=== PATIENT | male | born 1930 | race Caucasian/White ===

== ENCOUNTER 2016-10-12 22:30 | Inpatient (IN) | payer MEDICARE, OTHER ==
[~2016-10-12] VITALS: Ht 167.6 cm; Wt 73.4 kg
--- NOTE | ~2016-10-12 | CON ---
PATIENT'S NAME: CHING WILLIS [facility] AGE: 85 Y [address] ROOM: G6312 [place], [place] [address] LOCATION: GPCU ADMIT DATE: 10/12/2016 Consultation DISCHARGE DATE: FAMILY PHYSICIAN: PHYSICIAN, UNKNOWN ATTENDING PHYSICIAN: DEISY SEN V DATE OF CONSULTATION: 10/14/2016 REFERRING PHYSICIAN: LUCIA FONSECA MD The patient was seen in neurologic consultation on 10/14/2016 at the request of Dr. Niya Mortensen, the hospitalist. HISTORY OF PRESENT ILLNESS: Mr. 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 He initially had two events that were suggestive of a seizure, but probably more of a behavioral event that happened around nine months ago where he was experiencing some shaking and alteration in his sensorium very briefly not followed by any postictal period of confusion. In fact, his said that he had his eyes closed and did not lose posture with this and did not injure himself with both events. He was sent by his primary care doctor to a neurologist in [place], [place] where he was placed on Dilantin. The patient continued to have events that was suggestive of behavioral changes mostly unrelated to any tonic-clonic seizure activity and certainly no postictal periods of lethargy. We are not sure of a prior EEG if it was performed in the past, but an EEG was done today. The has been describing that over the past one and a half years, he has been having events of hallucinations where he would be seeing persons in the room and even describing him seeing his son in the room. Furthermore, he has unexplained periods during the day where he could certainly have a delirium and then improve, one day may be good followed by the next day, which is terrible with extreme amounts of agitation and delirium. He is not on any dementia medication at all. Further indications that this may be Lewy body dementia is the more rapid onset of this presentation the hallucinations and delirium as well as some parkinsonian features of the patient having increased slowing, having increased limb tone and falling and periods of a shuffling gait and falling. Neurology was asked to see if the patient was safe to go in for a permanent pacemaker for third-degree heart block which is indicated on an EKG. Furthermore, Neurology was questioned on the aspect of the questionable seizures and what medication should be recommended at this point in time. PRIOR MEDICAL HISTORY: Dementia for about one and half years not on any dementia medication, likely Lewy body dementia consistent with hallucinations, periods of unexplained confusion with delirium, and parkinsonian features with unexplained falls. He PATIENT'S NAME: CHING WILLIS [facility] AGE: 85 Y [address] ROOM: [facility] [place], [place] [address] [facility] AD[facility] DATE: 10/12/2016 Consultation DISCHARGE DATE: FAMILY PHYSICIAN: PHYSICIAN, UNKNOWN ATTENDING PHYSICIAN: DEISY SEN V also has a history of coronary artery disease status post CABG. History of aortic pig prosthetic valve replacement. CURRENT MEDICATIONS: Started today include: 1. Keppra 500 mg p.o. b.i.d. 2. Aspirin 81 mg p.o. daily. 3. Cozaar 25 mg p.o. daily. 4. Zocor 20 mg p.o. daily. FAMILY HISTORY: Not consistent here and there is no known history of dementia in the parents. 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 He has been to his 2nd presently for 47 years. He has a total of five children. He does not smoke. He does not drink alcohol. REVIEW OF SYSTEMS: NEUROLOGIC: The patient has dementia likely Lewy body type dementia with unexplained falling, delirium, hallucinations and more rapid onset of symptoms over the course of time, most recently worsening of periods of unexplained alteration in sensorium not consistent with the seizures. CARDIAC: The patient has a third degree heart block. He is scheduled for a permanent pacemaker today. He has an aortic valve replacement that does not require oral anticoagulation as it is a prosthetic pig valve. He denies any current chest pain. The cardiac history also includes hypertension, coronary artery disease. The rest of a 10-point review of systems currently was within normal limits. PHYSICAL EXAMINATION: GENERAL: The patient is sitting upright in the bed. He greets me, and he is alert and oriented to the day, time, but not the date. He answers questions appropriately, but he is not very spontaneous in his speech. His speech is not slurred. There were no problems with word finding. He follows all commands in the testing. There is slight mass facial expression on the cranial nerve exam, otherwise cranial nerves 2 through 12 was intact. Neck is supple on flexion and extension. Motor power is symmetric at 5/5 graded in the upper and lower extremities. There was slight tone increase in the right upper extremity with no evidence of any background cogwheeling. Sensory exam is completely intact. Reflexes are normal +1 at the biceps, triceps, brachioradialis, patellar, and ankle jerk reflexes. Plantar reflex is downgoing. Ambulation is not tested. Subjective recall from the , he has diminished arm swing and stooped posture. PATIENT'S NAME: CHING WILLIS [facility] AGE: 85 Y [address] ROOM: [address] [address] [facility] ADMIT DATE: 10/12/2016 Consultation DISCHARGE DATE: FAMILY PHYSICIAN: PHYSICIAN, UNKNOWN ATTENDING PHYSICIAN: DEISY SEN V IMPRESSION: Let us continue the patient on antiseizure medications at this point in time, Keppra will be started at 500 mg twice a day. I am very skeptical that he actually has a seizure diagnosis. I think this was something of an exclusion, especially considering the patient did have prominent dementia symptoms that started nearly one year ago. The nature of alteration in sensorium without being some type of a partial-complex seizure is much more likely to be an associated behavioral changes then it is seizures. It would be very strange for a person his age to suddenly develop seizure activity with normal brain imaging and certainly I would not support partial-complex seizures here. Because he has a procedure upcoming let us keep him on the antiseizure medication. I want to see him in the outpatient setting. We may lower the Keppra with time to see how he does, but certainly he needs to be placed on Aricept as an outpatient which would be better handled and to follow him then. Discussed the nature of Lewy body dementia with the and the family members and they described very salient points concerning these more rapid onset of dementia with hallucinations, parkinsonian features, falling, explained delirium events, staring into space very much consistent with Lewy body dementia. Neurologic perspective, he certainly is okay to go in for a permanent pacemaker procedure today. I will follow up with the patient in clinic. MD GARY CHOWDHURY/carlos a /[id number] d: 10/14/16 1840 t: 10/27/16 1352, CONSULTATION REPORT
--- NOTE | ~2016-10-12 | NDGEN ---
PATIENT'S NAME: CHING OSUNA [facility] AGE: 85 Y [address] ROOM: [address] [address] [facility] ADMIT DATE: 10/12/2016 Neurodiagnostics DISCHARGE DATE: FAMILY PHYSICIAN: PHYSICIAN, UNKNOWN ATTENDING PHYSICIAN: DEISY SEN V PROCEDURE: ELECTROENCEPHALOGRAM DATE OF PROCEDURE: 10/14/2016 CLINICAL DIAGNOSIS: The patient had the study done on 10/14/2016 at the request of Dr. Mortensen. TIME: 8:50 a.m. INDICATIONS: This is an 85-year-old male patient who has dementia. He has possibly a history of seizures though the differential would be occasional behavioral events suggestive of alteration in sensorium. He is scheduled to have a pacemaker placed today for a third-degree heart block. FINDINGS: This is a 20-lead EEG, which was done with the patient initially alert and who later becomes drowsy. Photic stimulation was performed late in the course of the study. General background rhythm was symmetric throughout the whole study and was showing a 50-70 amplitude background rhythm of between 8-9 hertz theta to nearly alpha rhythm. Based upon the patient's age, this is normal for his age. There was no evidence of any epileptiform features seen and no seizures were recorded. IMPRESSION: Normal EEG for age. MD GARY CHOWDHURY/carlos a /[id number] dtt: 10/27/16 1357 PARRISH JASON R. dtd: 10/14/16 1929
--- NOTE | ~2016-10-12 | CON ---
PATIENT'S NAME: CHING OSUNA [facility] AGE: 85 Y [address] ROOM: [address] [place] [id number] LOCATION: [facility] ADMIT DATE: 10/12/2016 Consultation DISCHARGE DATE: FAMILY PHYSICIAN: PHYSICIAN, UNKNOWN ATTENDING PHYSICIAN: DEISY SEN V DATE OF CONSULTATION: 10/13/2016 REFERRING PHYSICIAN: LUCIA FONSECA MD REASON FOR CARDIOLOGY CONSULT: Complete heart block. HISTORY OF PRESENT ILLNESS: This is an 85-year-old male, who was transferred from [place], [place], with intermittent third-degree AV block. History is obtained from chart review due to the patient's extensive dementia. When asking him about where he lives, he is unsure whether he lives in his own home. He is also unsure, but states that he "thinks he has 4 children." History reviewed from the chart shows a previous syncopal episode with seizure-like convulsions. He also has a history of seizure disorder, which is treated with Dilantin at home. Also noted history of coronary artery disease with a history of coronary artery bypass grafting as well as a "heart valve procedure." He also has a history of hypertension. The patient at this time denies any chest pain, shortness of breath, nausea, vomiting, or diarrhea. He does admit to loss of consciousness and when awoken in the ER, he had complaints of chest tightness. At the time of this consult, he is resting comfortably in bed with his home CPAP on. He is disoriented to place, but reorients quickly and is very pleasant with his confusion. PAST MEDICAL HISTORY: As listed in the HPI. SOCIAL HISTORY: From chart review, the patient resides in a senior living facility and is currently undergoing rehab. No noted history of tobacco, alcohol, or illicit drug use. FAMILY HISTORY: Unable to be obtained at this time due to the patient's dementia status. CURRENT MEDICATIONS: 1. Aspirin 81 mg p.o. daily. 2. Cozaar 25 mg p.o. daily. 3. Dilantin 100 mg p.o. daily in the evening. 4. Flomax 0.4 mg p.o. daily in the evening. PATIENT'S NAME: CHING OSUNA [facility] AGE: 85 Y [address] ROOM: G[address] [place], [place] [address] LOCATION: GPCU ADMIT DATE: 10/12/2016 Consultation DISCHARGE DATE: FAMILY PHYSICIAN: PHYSICIAN, UNKNOWN ATTENDING PHYSICIAN: DEISY SEN V 5. Tylenol 500 mg p.o. daily in the evening. 6. Zocor 20 mg p.o. daily in the evening. 7. Nitroglycerin 0.4 mg transdermally daily. MEDICATION ALLERGIES: Morphine causing hallucinations. REVIEW OF SYSTEMS: Pertinent positive review of systems as listed in the HPI. All other review of systems evaluated through chart review as well as discussing with the patient and appeared to be negative. We will continue to evaluate these as further information first became available. DIAGNOSTICS: CMS evaluation shows sodium of 144, potassium 3.7, BUN 19, creatinine 1.2, glucose 115, and magnesium 2.3. He has a set of cardiac enzymes, which showed a CPK of 112, CK-MB of 0.6, and troponin I of less than 0.04. PHYSICAL EXAMINATION: VITAL SIGNS: Temperature 97.8, pulse 66, respirations 16, blood pressure 138/63, and O2 saturation 98% on 2 L nasal cannula. The patient weighs 79.9 kg. SKIN: [place], warm, and dry. EYES: Sclerae clear. No xanthelasmas. ENT: Oral mucosa is pink and moist. NECK: No jugular venous distention. No carotid bruits. CHEST: Respirations are even and unlabored. LUNGS: Clear to auscultation. HEART: Regular rate and rhythm. Normal S1 and S2. Does have a mild ejection systolic murmur. ABDOMEN: Soft. Nontender. MUSCULOSKELETAL: Equal muscle strength to upper and lower extremities bilaterally against resistance. EXTREMITIES: Peripheral pulses palpable. No clubbing, cyanosis, or edema. PSYCH: Alert, but disoriented to place. He does reorient easily and is calm and cooperative with cares. IMPRESSION AND PLAN: Per Dr. Gonzalez. 1. Intermittent third-degree atrioventricular block. The patient is currently in a first-degree atrioventricular block with sinus rhythm noted with a heart rate of 60 beats per minute. He currently has a ZIO patch in place, but we are unable to scan that emergently. We will try to request previous cardiac records to fully evaluate his past cardiac history. The patient will likely need a permanent pacemaker due to his PATIENT'S NAME: CHING OSUNA [facility] AGE: 85 Y [address] ROOM: [address] [place] [address] LOCATION: [facility] ADMIT DATE: 10/12/2016 Consultation DISCHARGE DATE: FAMILY PHYSICIAN: PHYSICIAN, UNKNOWN ATTENDING PHYSICIAN: DEISY SEN V syncope and loss of consciousness along with documented high-grade atrioventricular block. We were able to speak with the patient's on the phone and the patient would like to be a DNR, but is okay with the pacemaker. We will check a 2D echocardiogram to fully evaluate ejection fraction as well as look for wall motion abnormalities. We want to make sure the patient is not in need of an ICD as well as a pacemaker. 2. Coronary artery disease with a history of coronary artery bypass grafting. No complaints of angina. He also has no acute ST changes noted on his EKG. He is on aspirin and statin and once again we will review his old records. 3. History of seizure disorder, currently on Dilantin under the care of the Hospitalist Service. 4. Dementia. We will continue to monitor, evaluate, and treat as appropriate. Thank you for this consult. Thank you for allowing [facility] to interact in the care of this patient. SONDRA CORONADO APRN FOR MD JATIN CLOUD/carlos a /[id number] d: 10/13/16 1856 t: 10/31/16 0937, CONSULTATION REPORT
--- NOTE | ~2016-10-12 | DS ---
PATIENT'S NAME: CHING OSUNA [facility] AGE: 85 Y [address] ROOM: G[address] [place], [place] [address] LOCATION: GPCU ADMIT DATE: 10/12/2016 Discharge Summary DISCHARGE DATE: 10/17/2016 FAMILY PHYSICIAN: Physician, Unknown ATTENDING PHYSICIAN: Joe Tovar V PRINCIPAL DIAGNOSES: 1. Complete heart block, status post permanent pacemaker. 2. Dementia, Lewy body. 3. Questionable seizures. 4. Hypertension, essential. 5. History of coronary artery disease, status post CABG. HOSPITAL COURSE: An 85-year-old gentleman with a past medical history significant for dementia, which has been going on for over a couple of years, not on any dementia medications, presented to the [facility] as a transfer from [place], [place], where he was admitted for syncopal episodes, accompanied by convulsions couple of times over the course of last 1 week. However, at [place], [place], he was found to have his heart rate in 30s, and EKG did show complete heart block, and he was transferred here for further medical management. He was admitted to the hospital, and a Cardiology consultation was made, and there was a plan to put a permanent pacemaker in this gentleman. Echocardiography was done before this procedure, which showed left ventricle ejection fraction 65% and mild concentric left ventricular hypertrophy. The patient uneventfully underwent pacemaker placement by the Cardiothoracic Surgery. Neurology consultation was also made due to this questionable seizure activity as well as dementia. Neurology got an EEG, which was negative for any epileptic activity. They deemed that this is secondary to the dementia, which is most likely Lewy body associated with hallucination as well as behavioral changes. They did stop Dilantin on this gentleman, started him on Keppra 500 mg b.i.d. and wanted to see him in 3 months' time. No further investigations were requested by the Neurology. He did well during the course of the hospitalization, doing well with physical and occupational therapy. He is going to [facility]. DISCHARGE MEDICATIONS: 1. Aspirin 81 mg p.o. every day. 2. Losartan 50 mg p.o. daily, which was 25 and has been increased to 50 to control blood pressure better. 3. Nitroglycerin patch 0.4 mg trans every day, which he had been on for many years now prescribed by his sap crm developer. 4. Metoprolol tartrate 25 mg p.o. twice daily. 5. Nitroglycerin 0.4 mg sublingual as needed for chest pain. 6. Simvastatin 20 mg p.o. every night at bedtime. 7. Tamsulosin 0.4 mg p.o. q.h.s. PATIENT'S NAME: CHING OSUNA [facility] AGE: 85 Y [address] ROOM: [address] [address] [facility] ADMIT DATE: 10/12/2016 Discharge Summary DISCHARGE DATE: 10/17/2016 FAMILY PHYSICIAN: Physician, Unknown ATTENDING PHYSICIAN: Joe Tovar V 8. Tylenol 500 mg p.o. every night at bedtime. 9. Citalopram 30 mg p.o. every day. 10. Percocet 2.5/325 mg tablet 1 tablet p.o. q.6 hours p.r.n. for pain. 11. Keppra 500 mg p.o. b.i.d. 12. Donepezil 5 mg p.o. every day. ACTIVITY: As tolerated. DIET: Low-sodium diet. FOLLOWUP: Follow up with primary care physician in 1 week. Follow up with Dr. Marinelli in 3 months and follow up with Cardiology in 6 weeks. I spent greater than 30 minutes in coordinating care regarding the discharge of this gentleman. MD KARY LEWIS/carlos a /[id number] d: 10/18/16 0437 t: 10/21/16 1503, DISCHARGE SUMMARY
--- NOTE | ~2016-10-12 | ECHO ---
Transthoracic Echocardiography Report (TTE) Demographics Patient Name CHING OSUNA JR Date of Study 10/13/2016 Patient Number [id number] Visit Number [id number] Date of 1930 Room Number G6312 Gender Male Number Age 85 year(s) Referring Guy Diaz V Scooping Machine Tender Ivone Simms [facility] Physician MD Lisa Sierra Physician Interpreting Lisa Sierra Care Connector Physician Supervising Ordering Lisa Sierra MD/MLP Physician Nurse Stress Dining Service Supervisor Conclusions Contractility Score Summary Normal Left Ventricular contractility was noted. Summary The estimated left ventricular ejection fraction is 65%. Mild concentric left ventricular hypertrophy. Diastolic assessment reveals Grade 1 diastolic dysfunction . Mildly dilated right ventricle. Mildly reduced right ventricular function. Mild mitral annular calcification. Mild mitral regurgitation by color Doppler. The prosthetic aortic valve leaflets were not visualized well. Peak gradient across aortic valve is 23 mm hg with a mean gradient of 13 mmHg. There is trivial aortic regurgitation by color Doppler. Procedure Type of Study TTE procedure:2D Echocardiogram, M-Mode, Doppler , Color Doppler. Procedure Date Date: 10/13/2016 Start: 10:56 AM Study Location: Inpatient Portable Technical Quality: Adequate visualization Indications:Bradycardia. Appropriate Use Criteria: 9 Patient Status: Routine HR: 64 bpm BP: 124/74 mmHg Allergies - Morphine. M-Mode/2D Measurements LV Diastolic Dimension: 4.79 cm LV Systolic Dimension: 2.5 cm LV Septum Diastolic: 1 cm LV PW Diastolic: 0.88 cm AO Root Dimension: 2.8 cm Cardiac Output: 4.33 l/min LA Dimension: 3.9 cm LVOT: 1.9 cm LVOT VTI: 23.9 cm RV Base: 3.83 cm LV Stroke volume: 67.73 ml RV Length: 7.14 cm TAPSE: 1.13 cm TDI-S': 7.57 cm/s Doppler Measurements AV Peak Velocity: 2.08 m/s MV Peak E-Wave: 1.29 m/s AV Peak Gradient: 17.31 mmHg MV Peak A-Wave: 1.11 m/s AV Mean Gradient: 13 mmHg MV E/A Ratio: 1.16 LVOT Peak Velocity: 0.98 m/s MV P1/2t: 73 msec TR Gradient:16.81 mmHg PV Peak Velocity: 0.97 m/s Estimated RAP:3 mmHg PV Peak Gradient: 3.77 mmHg Estimated RVSP: 20 mmHg Estimated PASP: 19.81 mmHg E' Septal Velocity: 0.05 m/s A' Septal Velocity: 0.11 m/s E' Lateral Velocity: 0.08 m/s A' Lateral Velocity: 0.17 m/s Findings Left Ventricle The left ventricle is normal in size . Mild concentric left ventricular hypertrophy. Diastolic assessment reveals Grade 1 diastolic dysfunction . Right Ventricle Mildly dilated right ventricle. Mildly reduced right ventricular function. Left Atrium Normal left atrial size. Right Atrium Normal right atrial size. Mitral Valve Mild mitral annular calcification. Mild calcification of the mitral valve. Mild mitral regurgitation by color Doppler. Aortic Valve The prosthetic aortic valve leaflets were not visualized well. Peak gradient across aortic valve is 23 mm hg with a mean gradient of 13 mmHg. There is trivial aortic regurgitation by color Doppler. Tricuspid Valve Normal tricuspid valve structure and function. Trivial tricuspid regurgitation by color Doppler. Pulmonic Valve The pulmonic valve is not well visualized. Trivial pulmonic valve regurgitation by color Doppler. Pericardial Effusion No evidence of pericardial effusion. Miscellaneous Visualized portions of the aortic root and ascending aorta appear normal in size. Pleural Effusion No evidence of pleural effusion. Contractility Score LV regional wall motion:(0-Non visualized 1-Normal 2-Hypokinesis 3-Akinesis 4-Dyskinesis 5-Aneurysm) Signature dtt: HOLLY JORGENSEN dtd: 10/13/16 1056 Physician Self Edit
--- NOTE | ~2016-10-12 | OR ---
PATIENT'S NAME: CHING WILLIS [facility] AGE: 86 Y [address] ROOM: [place] [address] LOCATION: GPCU ADMIT DATE: 10/12/2016 OR/Procedure Report DISCHARGE DATE: 10/17/2016 FAMILY PHYSICIAN: Physician, Unknown ATTENDING PHYSICIAN: Joe Tovar V SURGEON: Ruben Tiwari DO PACKING MACHINE CAN FEEDER: DATE OF PROCEDURE: 10/14/2016 PREOPERATIVE DIAGNOSIS: Third-degree heart block. POSTOPERATIVE DIAGNOSIS: Third-degree heart block. PROCEDURE: Insertion of dual-chamber permanent pacemaker via the left subclavian vein. BRIEF HISTORY: Mr. Willis is an 85-year-old white male, known to me from previous coronary artery bypass graft with aortic valve replacement. He presented to the Emergency Department with a near syncopal episode and found to have third-degree AV block. He was being brought to the operative suite today after informed consent has been obtained from the family regarding permanent pacemaker placement. DESCRIPTION OF PROCEDURE: He was sterilely prepped and draped over the anterior chest wall, and after appropriate IV sedation was achieved, 1% lidocaine was used to infiltrate the left infraclavicular space. The patient was placed into a Trendelenburg position. The subclavian vein was accessed without difficulty and a guidewire was placed under fluoroscopic guidance x2 into the right atrium. An incision was created and a pocket was formed. Electrocautery was used for hemostasis. Guidewires were then brought through the incision via sheath and dilator assembly, then we placed our leads. We began with our ventricular lead, it is a [place] [employer] MRI lead, model 7742, serial number [id number], placed in the right distal ventricular septum. Sensing R-waves of 8 with a voltage threshold of 0.9 and a pacing impedance of 980 ohms. In a similar fashion, we placed our atrial lead, also [employer] INGEVITY MRI lead, model 7741, serial number [id number]. It was placed in the right atrial appendage. Sensing P-waves of 1.2 with a voltage threshold of 1.1 mV with a pacing impedance of 800 ohms. Each lead was then connected to the generator which is a [employer] MRI, model L111, serial number is [id number]. Leads and generator were placed into the pocket. Appropriate sensing and pacing were noted. The incision was then closed in a layered fashion, and a pressure dressing was applied. The patient tolerated the procedure well. PATIENT'S NAME: CHING WILLIS [facility] AGE: 86 Y [address] ROOM: [address] [address] LOCATION: GPCU ADMIT DATE: 10/12/2016 OR/Procedure Report DISCHARGE DATE: 10/17/2016 FAMILY PHYSICIAN: Physician, Unknown ATTENDING PHYSICIAN: Joe Tovar V DO RYANNE HOOVER/carlos a /[id number] d: 10/25/16 1857 t: 10/26/16 0743, OPERATIVE SUMMARY
--- NOTE | ~2016-10-12 | HP ---
PATIENT'S NAME: [facility] AGE: 85 Y [address] ROOM: [place] [id number] LOCATION: GPCU ADMIT DATE: 10/12/2016 History & Physical DISCHARGE DATE: FAMILY PHYSICIAN: PHYSICIAN, UNKNOWN ATTENDING PHYSICIAN: DEISY SEN V DATE OF SERVICE: CHIEF COMPLAINT: Passing out. HISTORY OF PRESENT ILLNESS: This was obtained entirely from the patient's spouse as he has considerable dementia. He is an 85-year-old male with past medical history of coronary artery disease with a history of CABG, as well as a seizure disorder. The patient has been noted to have syncopal episodes, which were accompanied by convulsions in the last week. He was also noted to have a heart rate in the 30s. Today, he was evaluated in the ER in [place], [place], and was found to have heart rate in the 30s on the EKG. I appreciated a complete heart block with AV claudette dissociation and heart rates in the 30s. He was thus communicated with Dr. Mesa, who requested admission to the Hospitalist Service. The patient, at this point, denies any acute complaints, but does endorse episodes of sudden loss of consciousness, that is about all. He denies chest pain, shortness of breath, nausea, vomiting, or diarrhea. REVIEW OF SYSTEMS: All ten systems have been reviewed and are negative aside from pertinent positives mentioned above. PAST MEDICAL AND SURGICAL HISTORY: As reported by the , 1. A longstanding history of seizure disorder. 2. Coronary artery disease. 3. CABG. 4. A heart valve procedure, though I am not sure of the details. 5. Essential hypertension. SOCIAL HISTORY: The patient currently is residing in a Intermediate Facility for rehab, though usually he lives at home. No reported history of toxic habits. FAMILY HISTORY: PATIENT'S NAME: [facility]ING [facility] AGE: 85 Y [address] ROOM: [address] [address] LOCATION: GPCU ADMIT DATE: 10/12/2016 History & Physical DISCHARGE DATE: FAMILY PHYSICIAN: PHYSICIAN, UNKNOWN ATTENDING PHYSICIAN: DEISY SEN V Noncontributory due to his advanced age. CURRENT MEDICATIONS: Include Dilantin, but we do not have the rest of the medication list, and that will be obtained. PHYSICAL EXAMINATION: VITAL SIGNS: At this point, his heart rate is in the 70s, blood pressure is 146/76, saturating at 96% on room air, afebrile, and respirations are 14. GENERAL: He appears as a well-developed, well-nourished, elderly male, in no acute distress. NEUROLOGIC: Nonfocal. The patient is alert and oriented x1. HEART: Revealed regular rate and rhythm without appreciable murmurs, gallops, or rubs. GI: Revealed abdomen is soft, nontender, and nondistended. : Revealed no costovertebral angle tenderness. LUNGS: Clear to auscultation. LYMPHATICS: Showed no cervical lymphadenopathy. ENDOCRINE: Showed no thyromegaly. VASCULAR: 2+ pedal pulses. SKIN: Warm and dry. MUSCULOSKELETAL: Unremarkable. PSYCHIATRIC: Revealed a patient who was considerably confused, which is his baseline. No suicidal or homicidal ideations. LABORATORY DATA AND DIAGNOSTIC STUDIES: EKG is as described in the HPI. Lab results from outside facility, was entirely unremarkable including cardiac enzymes. ASSESSMENT AND PLAN: This is an 85-year-old male, who will be admitted with intermittent third- degree heart blocks. Individual problems to be addressed are as follows, 1. Intermittent third-degree heart block. The patient will be monitored on telemetry. We will have atropine and epinephrine at the bedside. He will be made bed rest. He will be made n.p.o. in anticipation of placement of a pacemaker tomorrow. 2. Coronary artery disease. We will obtain a full list of medications and continue them. 3. History of seizure disorder. We will have to get additional documentations about that. It is unclear if recent episodes of syncope are related to seizures, or perhaps due to the heart block. We will consider Neurology evaluation once we address his cardiac conduction issues. PATIENT'S NAME: [facility] AGE: 85 Y [address] ROOM: [id number] [place] [id number] [facility] ADMIT DATE: 10/12/2016 History & Physical DISCHARGE DATE: FAMILY PHYSICIAN: PHYSICIAN, UNKNOWN ATTENDING PHYSICIAN: DEISY SEN V 4. Dementia, noted. 5. Goals of care. I was made aware that the patient is do not resuscitate, and we will respect those wishes. Additional management will depend on clinical course. Time dedicated to this patient's encounter is 35 minutes. MD PACO FLOWERS/carlos a /[id number] D: [id number] T: [id number] HISTORY & PHYSICAL
[2016-10-13] MEDS ORDERED: ASPIRIN LO-DOSE81 MG PO (00:32)
[2016-10-13] MEDS ORDERED: TYLENOL EXTRA500 MG PO (00:32)
[2016-10-13] MEDS ORDERED: CELEXA20 MG PO (00:33)
[2016-10-13] MEDS ORDERED: COZAAR50 MG PO (00:33)
[2016-10-13] MEDS ORDERED: FLOMAX0.4 MG PO (00:33)
[2016-10-13] MEDS ORDERED: NITRO-DUR1 EAC1 TOP (00:34)
[2016-10-13] MEDS ORDERED: NITROSTAT0.4 MG SL (00:35)
[2016-10-13] MEDS ORDERED: NITROGLYCERIN0.4 M1 TRANS (00:35)
[2016-10-13] MEDS ORDERED: PERCOCET 2.5-31 EACH PO (00:36)
[2016-10-13] MEDS ORDERED: DILANTIN100 MG PO (00:37)
[2016-10-13] MEDS ORDERED: ZOCOR20 MG PO (00:38)
--- NOTE | 2016-10-13 01:14 | NUR ---
Patient is is an 85 year old male who arrived by EMS from [facility], admitted to PCU for bradycardia. Pt experienced 2 falls on October 12. Had been experiencing increasing weakness and fatigue for the past couple days. At [place] ER, ekg showed bradycardia. On the way to [facility], heart rate increased to 70s without intervention. Hx of dementia, [place] in 2009, HTN, Hyperlipidemia, CKD stage 3, Depression, sleep apnea. Has allergy to Morphine.
[2016-10-13 03:45] LABS: BASOPHIL % 0.2 %; EOSINOPHIL # 0.1 K/uL (0.0-0.5); EOSINOPHIL % 1.8 %; HEMATOCRIT 34.4 % (33.0-50.0); HEMOGLOBIN 12.1 g/dL (11.0-16.0); IMMATURE GRANULOCYTE % 0.4 %; LYMPHOCYTE # 1.4 K/uL (0.8-4.0); LYMPHOCYTE % 28.5 %; MCH 33.2 pg (27.0-34.0); MCHC 35.2 gm/dL (32.0-36.5); MCV 94.2 fl (83.0-98.0); MONOCYTE # 0.6 K/uL (0.0-1.0); MONOCYTE % 11.5 %; MPV 9.8 fl (9.4-12.4); NEUTROPHIL # (ANC) 2.9 K/uL (1.4-9.0); NEUTROPHIL % 57.6 %; NRBC % 0 /100WBC (0-0.00); PLATELET COUNT 155 K/uL (150-450); RBC 3.65 M/uL (3.50-5.50); RDW-CV 13.3 % (11.9-14.6); WBC 5.1 K/uL (4.0-11.0)
[2016-10-13 04:05] LABS: INR - (THERAPEUTIC) 1.04 (0.92-1.07); PROTIME 10.9 SECONDS (9.8-11.4)
[2016-10-13 04:09] LABS: ANION GAP 12.7 (10.0-19.0); BLOOD UREA NITROGEN 19 mg/dL (6-24); CALCIUM 8.1 mg/dL (8.5-10.5); CHLORIDE 110 mMol/L (96-110); CO2 25 mMol/L (22-32); CPK 112 IU/L (35-332); CREATININE 1.2 mg/dL (0.6-1.3); ESTIMATED GFR (MDRD EQUATION) 58; MAGNESIUM 2.3 mg/dL (1.8-2.6); PHOSPHORUS 2.9 mg/dL (2.5-4.9); POTASSIUM 3.7 mMol/L (3.7-5.1); SODIUM 144 mMol/L (135-145)
--- NOTE | 2016-10-13 04:48 | NUR ---
Significant Event: Alert, disoriented to time/place. confused and forgetful often. Needs to be reoriented often. VSS on RA. Wears cpap @ night for sleep apnea. SBP 130-140s. HRs 70s. Denies pain. 500 uop. NPO since midnight. Very unsteady on feet. Follow up: Bed alarm needs to be on.
--- NOTE | 2016-10-13 11:24 | NUR ---
Reviewed chart, pt confused and not present when I was at pt room earlier this morning. I called pt Melody just now and she is with pt now, stayed at [facility] last night. Introduced self and care management services to her. She reports pt was in [facility] a week or so ago and from there he went to [facility] in [place] for rehabilitation stay. She is hoping they can get whatever going on with his heart sorted out here and he can go home on discharge, but will see how he does, may need to go back to [facility] for further skilled stay. Will follow.
[2016-10-13 16:41] LABS: INR - (THERAPEUTIC) 1.04 (0.92-1.07); PROTIME 10.9 SECONDS (9.8-11.4)
[2016-10-13 16:44] LABS: ALBUMIN 3.3 gm/dL (3.5-5.0); ANION GAP 11.7 (10.0-19.0); BLOOD UREA NITROGEN 14 mg/dL (6-24); CALCIUM 8.2 mg/dL (8.5-10.5); CHLORIDE 111 mMol/L (96-110); CO2 24 mMol/L (22-32); CREATININE 1.1 mg/dL (0.6-1.3); ESTIMATED GFR (MDRD EQUATION) > 60; PHOSPHORUS 2.6 mg/dL (2.5-4.9); POTASSIUM 3.7 mMol/L (3.7-5.1); SODIUM 143 mMol/L (135-145)
--- NOTE | 2016-10-13 20:49 | NUR ---
Significant Event: Alert and oriented X 1. Forgetful on date and place. Room air during the day and CPAP at night. SBP 120's, 140's and 150's. HR 60's. Hvy 2 assist, unsteady. History of falls. IV to right forearm, fluids running at 50 ml/hr. Possible seizure activity X 3 this shift. Patient shakes and last for approximately 15 seconds each time. Complaints he has after the events are anxious, look of fear in his eyes during the event, lose of vision for a short time during event, shortness of breath and chest pressure in the mid lower part of chest. HR stays within the 60's during activity. SBP [address] Marinelli has been consulted and EEG scheduled for tomorrow morning. Family at bedside. Pleasant and cooperative with cares. Follow up: Pace Maker tomorrow at 12.
--- NOTE | 2016-10-14 06:56 | NUR ---
Significant Event: Alert. Disoriented to time/place. Denies pain. VSS on RA, wears cpap at night. SBP 120-160s. HRs 60-70s. Does not use call light, bed alarm needs to be on. NPO since midnight. Follow up: Pacemaker placement today and EEG today.
--- NOTE | 2016-10-14 11:44 | NUR ---
PT OFF FLOOR FOR SCHEDULED PACEMAKER SURGERY. UNABLE TO ASSESS PT AT 1100. WILL ASSESS PT WHEN RETURNED TO THE FLOOR.
--- NOTE | 2016-10-14 19:08 | NUR ---
Patient post pacemaker placement on left side. patient alert and confused at time. vitals stable.
--- NOTE | 2016-10-14 19:30 | NUR ---
I HAVE READ AND AGREE WITH CHARTING DONE BY Megha JOSEPH STUDENT NURSE
--- NOTE | 2016-10-15 04:04 | NUR ---
Significant Event: PATIENT IS DISORIENTED TO TIME/PLACE AND MORE FORGETFUL/CONFUSED THROUGHOUT THE NIGHT. ABLE TO CARRY ON FULL CONVERSATION BUT GETS CONFUSED ABOUT THINGS AND DOESN'T REORIENT EASILY AT TIMES. VSS. HR 80-90'S. SBP 100-150'S. AFEBRILE. 02 SATS IN LOW TO UPPER 90'S CURRENTLY ON RA. REFUSED TO WEAR CPAP FOR MORE THAN 2 HOURS BECAUSE IT WAS FORCING TO MUCH AIR AND PATIENT COULDN'T SLEEP. LUNGS CLEAR/DIM THROUGHOUT. UP WITH 1-2 ASSIST. LEFT ARM IMMOBILIZER IN PLACES. BOWELS ACTIVE. SMALL BM X1. GET AGITATED ABOUT LIMITING ACTIVITY. FAMILY SAYS PATIENT HAD FREQUENT FALLS BEFORE ADMISSISON. HIGH FALL RISK. STOOD AT BEDSIDE TO USE URINAL. BED ALARM AT ALL TIMES. DOES NOT USE CALL LIGHT WELL. IV TO RIGHT INNER FOREARM SL. C/O PAIN TO LEFT SUBCLAVIAN WHERE PACEMAKER WAS PLACED. DRESSING C/D/I. ICE DIDN'T HELP MUCH. 0.5 TAB OXY X1 WITH SOME RELIEF. FAMILY AT BEDSIDE. OVERWHELMING AT TIMES. Follow up: CONTINUE TO MONITOR. PATIENT FAMILY WANTS PATIENT TO STAY HERE UNTIL MONDAY SO PATIENT CAN QUALIFY FOR SWINGBED.
--- NOTE | 2016-10-15 15:16 | NUR ---
Significant Event: Alert and oriented X 3. Room air. Cpap at night. SBP 130's and 150's. HR 70's and 80's. Afebrile. Pacer site right upper chest, edges approximated and open to air. Arm stabilizer on. Peripheral IV right inner forearm saline locked, flushes well with no blood return. Pleasant and cooperative with cares. Follow up:
--- NOTE | 2016-10-16 04:15 | NUR ---
Significant Event: PATIENT OREIENTATION VARRIED. ORIENTED X3 TOWARDS BEGINNING OF SHIFT. DISORIENTED TO TIME/PLACE TOWARDS END OF SHIFT. SLEPT FOR ALMOST 5 HOURS STRAIGHT BUT VERY CONFUSED AND NOT REORIENTING WELL SINCE AWAKE. VSS. HR 70'S. SBP 150-160'S. AFEBRILE. 02 SATS IN MID 90'S ON RA WHEN AWAKE AND CPAP WITH 2L WHEN ASLEEP. C/O PAIN TO LEFT SUBCLAVIAN TOLERABLE. LUNGS CLEAR/DIM TO DIM. UP WITH 1-2 ASSIST. VERY UNSTEADY AT TIMES. BOWELS HYPERACTIVE. SMALL BM. C/O CONSTIPATION. VOIDS PER URINAL AT BEDSIDE. RIGHT INNER FOREARM IV SL. Follow up: CONTINUE TO MONITOR. TRANSFER IN [facility] IN NEXT DAY OR TWO.
[2016-10-16 05:52] LABS: BASOPHIL % 0.3 %; EOSINOPHIL # 0.1 K/uL (0.0-0.5); EOSINOPHIL % 1.5 %; HEMATOCRIT 35.6 % (33.0-50.0); HEMOGLOBIN 12.5 g/dL (11.0-16.0); IMMATURE GRANULOCYTE % 0.5 %; LYMPHOCYTE # 1.4 K/uL (0.8-4.0); LYMPHOCYTE % 21.7 %; MCH 33.1 pg (27.0-34.0); MCHC 35.1 gm/dL (32.0-36.5); MCV 94.2 fl (83.0-98.0); MONOCYTE # 0.8 K/uL (0.0-1.0); MONOCYTE % 11.7 %; MPV 9.3 fl (9.4-12.4); NEUTROPHIL # (ANC) 4.2 K/uL (1.4-9.0); NEUTROPHIL % 64.3 %; NRBC % 0 /100WBC (0-0.00); PLATELET COUNT 172 K/uL (150-450); RBC 3.78 M/uL (3.50-5.50); RDW-CV 13.3 % (11.9-14.6); WBC 6.5 K/uL (4.0-11.0)
[2016-10-16 06:05] LABS: ANION GAP 10.8 (10.0-19.0); BLOOD UREA NITROGEN 19 mg/dL (6-24); CALCIUM 8.7 mg/dL (8.5-10.5); CHLORIDE 108 mMol/L (96-110); CO2 25 mMol/L (22-32); CREATININE 1.1 mg/dL (0.6-1.3); ESTIMATED GFR (MDRD EQUATION) > 60; POTASSIUM 3.8 mMol/L (3.7-5.1); SODIUM 140 mMol/L (135-145)
--- NOTE | 2016-10-16 16:40 | NUR ---
PATIENT HAS HAD A GOOD DAY. AMBULATED IN [facility] 2 TIMES AND WALKED OVER 200 FT EACH TIME. PLAN TO GO TO [facility] BED TOMORROW. PLEASE HAVE CARE MANAGEMENT WORK ON THIS FIRST THING IN AM.
--- NOTE | 2016-10-17 04:30 | NUR ---
Significant Event: PATIENT IS A/O X3 BUT FORGETFUL AT TIMES. LESS CONFUSED THIS SHIFT. VSS. HR 70'S. SBP 140-160'S. AFEBRILE. 02 SATS IN MID 90'S ON RA. NO C/O PAIN. LUNGS CLEAR/DIM TO DIM. CPAP AT NIGHT BUT PATIENT REFUSED TO WEAR IT AFTER 0300. UP WITH 1A. SLIGHTLY UNSTEADY. LEFT ARM IMMOBILIZER ON. BOWELS ACTIVE. VOIDS PER URINAL LEFT SUBCLAVIN SURGICAL INCISION INTACT WITH EDGES APPROXIMATED AND HEALING. IV TO RIGHT FOREARM SL. Follow up: CONTINUE TO MONITOR. PAPERWORK NEEDS STARTED EARLY TO GET PATIENT TO [facility] TODAY.
--- NOTE | 2016-10-17 11:16 | NUR ---
Orders for patient to go to [facility] today, talked with patient and Melody, Melody would prefer he go to [facility] rather than [facility], although he was at [facility] for rehabilitation stay prior to this admission. Asked her in the event [facility] cannot accept him today, [facility] and she says [facility], wants him a little stronger before going home. Dr Burnett is his physician. Called [facility] and talked with Karuna, [facility] coordinator, and faxed referral, she will let me know if they can accept today. Called [facility] and talked with social problems specialist Ade and credentialing coordinator Oma and faxed referral information, they will accept today if [facility] can't. Talked with patient and , she will get their ride on the way here.
--- NOTE | 2016-10-17 12:34 | NUR ---
Received call from Karuna at [facility], she reviewed information and talked with Dr Burnett and therapy dept, Dr Burnett agrees pt would be better served with arm in sling and [facility]. I let pt and know, they are agreeable, granddaughter on the way to get them, I called [facility] and talked with nurse and left message for investor relations coordinator Oma to call me back with questions, but will discharge to them today, granddaughter on the way here to get pt and and [facility] Faxed orders and left phone number for nurse to call report when pt leaves.
--- NOTE | 2016-10-17 13:07 | NUR ---
85 YR OLD MALE WHO CAME IN WITH HEART BLOCK AND HR'S IN THE 30'S. HAD FALLEN AT HOME X 2 AND WENT TO [facility] ER. HR'S WHEN HE GOT TO [facility] WERE IN THE 70'S. PACEMAKER PLACED LFT SUBCLAVIAN ON 10-14. DUE TO HX DIMENTIA IMMOBILIZER ON TO LFT ARM. 1 ASST WITH WALKER AND GAIT BELT ON BUT DOES VERY WELL. RA AT DAYTIME AND NIGHT TIME HAS CPAP W 2L. IN ROOM WITH PATIENT.
[2016-10-17] MEDS ORDERED: ARICEPT5 MG PO (17:17)
[2016-10-17] MEDS ORDERED: KEPPRA500 MG PO (17:19)
[2016-10-17] MEDS ORDERED: LOPRESSOR25 MG PO (17:25)
--- NOTE | 2016-10-17 17:37 | NUR ---
Received call from ANASTASIYA Thomas that patient granddaughter came and she and decided to take patient home instead of go to [facility]. I talked with pt, and granddaughter in room and they feel they have enough help in family to assist him at home, discussed home health and granddaughter reports they only really want P.T. services and [facility] doesn't offer PT services through their HH. Talked about outpt P.T. and they would like to take him to that so I called Dr Wilson and he wrote a script ordering outpt P.T. 2-3 x week and I made a copy for chart and gave original to and granddaughter to take with them. Discharging home.
== END 2016-10-17 18:50 | disposition disaster alternative care site (69) | DRG 244 ==
LOC: GPCU 23:58
PROVIDERS: Internal Medicine; Nurse Practitioner Women's Health; ADMIT Internal Medicine
PROC: 0JH606Z Insertion of Pacemaker, Dual Chamber into Chest Subcutaneous Tissue and Fascia, Open Approach (ICD-10-PCS; principal; 2016-10-14)
PROC: 02HK3JZ Insertion of Pacemaker Lead into Right Ventricle, Percutaneous Approach (ICD-10-PCS; 2016-10-14)
DX: I44.2 Atrioventricular block, complete (principal); G40.409 Other generalized epilepsy and epileptic syndromes, not intractable, without status epilepticus; G31.83 Neurocognitive disorder with Lewy bodies; I10 Essential (primary) hypertension; I25.10 Atherosclerotic heart disease of native coronary artery without angina pectoris; Z66 Do not resuscitate; Z95.1 Presence of aortocoronary bypass graft; Z86.79 Personal history of other diseases of the circulatory system; Z79.82 Long term (current) use of aspirin; Z95.0 Presence of cardiac pacemaker
CPT/HCPCS: J0171; J0461; J0690; J1650; J1953; J7030; J7042; J7050